=== PATIENT | female | born 1990 | race Two or more races ===

== ENCOUNTER 2020-02-24 13:12 | Emergency (ER) | payer OTHER ==
[~2020-02-24] VITALS: Ht 157.5 cm; Wt 49.9 kg
[2020-02-24] MEDS ORDERED: ULTRACET PO (18:22)
[2020-02-24] MEDS ORDERED: CLEOCIN HCL150 MG PO (18:22)
== END 2020-02-24 18:58 | disposition home or self-care (01) ==
LOC: ER 13:12
DX: S40.012A Contusion of left shoulder, initial encounter (principal); S40.011A Contusion of right shoulder, initial encounter; S60.222A Contusion of left hand, initial encounter; S60.221A Contusion of right hand, initial encounter; S60.212A Contusion of left wrist, initial encounter; S60.211A Contusion of right wrist, initial encounter; S00.83XA Contusion of other part of head, initial encounter; W18.39XA Other fall on same level, initial encounter; Y93.89 Activity, other specified; Y92.828 Other wilderness area as the place of occurrence of the external cause; Y99.8 Other external cause status

== ENCOUNTER 2020-03-03 19:19 | Emergency (ER) | payer BC ==
[~2020-03-03] VITALS: Ht 157.5 cm; Wt 49.9 kg
[~2020-03-03 19:19] MED LIST: CLEOCIN HCL150 MG PO; ULTRACET PO
== END 2020-03-04 00:18 | disposition home or self-care (01) ==
LOC: ER 19:19
DX: Z48.02 Encounter for removal of sutures (principal)